=== PATIENT | female | born 1950 | race African-American/Black ===

== ENCOUNTER 2024-07-17 14:42 | Inpatient (IN) | payer OTHER ==
[2024-07-17 16:08] VITALS: BMI 24.7
[2024-07-17] MEDS ORDERED: IBUPROFEN 400 MG TABLET (FP) PO PRN (17:00)
[2024-07-17] MEDS ORDERED: LOPERAMIDE HCL 2 MG CAPSULE PO PRN (17:00)
[2024-07-17] MEDS ORDERED: ONDANSETRON *ODT* 4 MG TABLET SL PRN (17:00)
[2024-07-17] MEDS ORDERED: MAGNESIUM HYDROX 2400MG/30ML ORAL SUSPENSION 30 ML CUP PO PRN (17:00)
[2024-07-17] MEDS ORDERED: BENZOCAINE/MENTHOL (CHLORASEPTIC ) LOZENGE MM PRN (17:00)
[2024-07-17] MEDS ORDERED: BISMUTH SUBSALICYLATE 524 MG/30 ML PO PRN (17:00)
[2024-07-17] MEDS ORDERED: MAG HYDROX/AL HYDROX/SIMETH 30 ML UNIT-DOSE CUP PO PRN (17:00)
[2024-07-17] MEDS ORDERED: IBUPROFEN 600 MG TABLET (FP) PO PRN (17:00)
[2024-07-17] MEDS ORDERED: BENZONATATE 200 MG CAPSULE PO PRN (17:00)
[2024-07-17] MEDS ORDERED: guaiFENesin 600 MG TABLET.ER (FP) PO PRN (17:00)
[2024-07-17] MEDS ORDERED: POLYETHYLENE GLYCOL (HEALTHYLAX) 3350 17 GM PACKET PO PRN (17:00)
[2024-07-17] MEDS ORDERED: NALOXONE (NARCAN) HCL 4 MG/0.1 ML SPRAY NS PRN (17:00)
[2024-07-17] MEDS ORDERED: amLODIPine BESYLATE 5 MG TABLET (FP) ONE (19:32)
[2024-07-17] MEDS: amLODIPine BESYLATE 5 MG TABLET (FP) PO ONE (19:37)
[2024-07-17] MEDS: MELATONIN 5 MG TABLETS PO SCH (21:03)
[2024-07-17] MEDS: THIAMINE 100 MG TABLET PO SCH (21:03)
[2024-07-17] MEDS: diazePAM 5 MG TABLET PO PRN (21:04)
[2024-07-17] MEDS: diazePAM 5 MG TABLET PO SCH (23:56)
[2024-07-18] MEDS ORDERED: PATIENT'S OWN MEDICATION (NON-FORMULARY) (Amlodipine/Valsartan/Hcthiazid [Amlod-Valsa-Hctz PO SCH (10:00)
[2024-07-18] MEDS: VALSARTAN 160 MG TABLET PO SCH (10:38)
[2024-07-18] MEDS: PRENATAL VITAMINS W/ FOLIC ACID TABLET (FP) PO SCH (10:38)
[2024-07-18] MEDS: SERTRALINE HCL 50 MG TABLET (FP) PO SCH (10:39)
[2024-07-18] MEDS: HYDROCHLOROTHIAZIDE 25 MG TABLET (FP) PO SCH (10:39)
[2024-07-18] MEDS: amLODIPine BESYLATE 5 MG TABLET (FP) PO SCH (10:39)
[2024-07-18] MEDS: FOLIC ACID 1 MG TABLET (FP) PO SCH (10:39)
[2024-07-18] MEDS: PNEUMOC 20-VAL CONJ-DIP CRM/PF 0.5 ML SYRINGE IM ONE (11:25)
[2024-07-18] MEDS: HYDROCHLOROTHIAZIDE 25 MG TABLET (FP) PO ONE (12:44)
[2024-07-18 17:17] LABS: HEMATOCRIT 43.6 % (32.4-45.2); HEMOGLOBIN 14.5 GM/dL (10.7-15.3); MCH 32.5 pg (25.7-33.7); MCHC 33.4 g/dl (32.0-36.0); MEAN CELL VOLUME 97.6 fl (80-96); PLATELET COUNT 239 10^3/uL (134-434); RBC 4.47 M/mm3 (3.60-5.2); RDW 14.6 % (11.6-15.6); WHITE BLOOD COUNT 5.6 K/mm3 (4.0-10.0)
[2024-07-18 17:32] LABS: CHLORIDE 102 mmol/L (98-107); POTASSIUM 4.1 mmol/L (3.5-5.1); SODIUM 140 mmol/L (136-145)
[2024-07-18 17:36] LABS: ANION GAP 7 mmol/L (4-13); CALCIUM 10.7 mg/dL (8.5-10.1); CO2 31 mmol/L (21-32); GLUCOSE,RANDOM 110 mg/dL (74-106)
[2024-07-18 17:39] LABS: CREATININE 0.7 mg/dL (0.55-1.3); SGOT/AST 45 U/L (15-37); SGPT/ALT 40 U/L (13-61)
[2024-07-18 17:41] LABS: BILIRUBIN,TOTAL 0.9 mg/dL (0.2-1); TOT PROT 7.6 g/dl (6.4-8.2)
[2024-07-18 17:42] LABS: ALK PHOS 91 U/L (45-117)
[2024-07-18] MEDS: amLODIPine BESYLATE 5 MG TABLET (FP) PO ONE (21:12)
[2024-07-18] MEDS: cloNIDine HCL 0.1 MG TABLET PO ONE (21:12)
[2024-07-19] MEDS: diazePAM 5 MG TABLET PO SCH (05:55)
[2024-07-19] MEDS: HYDROCHLOROTHIAZIDE 25 MG TABLET (FP) PO SCH (09:34)
[2024-07-19] MEDS: NALTREXONE HCL 50 MG TABLET PO SCH (11:28)
[2024-07-19] MEDS: ACAMPROSATE CALCIUM 333 MG TABLET.DR PO SCH (13:53)
[2024-07-19] MEDS: ACETAMINOPHEN 325 MG TABLET (FP) PO PRN (19:28)
[2024-07-19] MEDS ORDERED: PATIENT'S OWN MEDICATION (NON-FORMULARY) (Dorzolamide/Timolol/Pf [Dorzolamide-Timolol 2%-0 OU SCH (22:00)
[2024-07-19] MEDS: TIMOLOL 0.5% OPHTHALMIC SOL 5 ML BOTTLE OU SCH (22:01)
[2024-07-19] MEDS: DORZOLAMIDE 2% HCL OPHTHALMIC SOLUTION 10 ML BOTTLE OU SCH (22:01)
[2024-07-20] MEDS: diazePAM 5 MG TABLET PO SCH (05:50)
[2024-07-20] MEDS ORDERED: METHOTREXATE 2.5 MG TABLET PO SCH (10:00)
[2024-07-20] MEDS: METHOTREXATE 2.5 MG TABLET PO SCH (10:16)
[2024-07-20 21:12] VITALS: RESP 16
[2024-07-21] MEDS: diazePAM 5 MG TABLET PO ONE (05:36)
[2024-07-21 09:14] VITALS: BP 140/60; PULSE 62; TEMP 97.6
== END 2024-07-21 12:30 | disposition home or self-care (01) | DRG 897 ==
LOC: YASAS 14:42 → Y6N 18:44
PROVIDERS: ADMIT Allergy & Immunology; ATTEND Allergy & Immunology
PROC: HZ2ZZZZ Detoxification Services for Substance Abuse Treatment (ICD-10-PCS; principal; 2024-07-17)
DX: F10.230 Alcohol dependence with withdrawal, uncomplicated (principal); F12.20 Cannabis dependence, uncomplicated; F32.A Depression, unspecified; F41.9 Anxiety disorder, unspecified; H40.9 Unspecified glaucoma; I10 Essential (primary) hypertension; M06.9 Rheumatoid arthritis, unspecified; Z87.891 Personal history of nicotine dependence
CPT/HCPCS: 36415; 80053; 80305; 80307; 85027; 86780; 90677; 93005; 93010; G0009; J8610